=== PATIENT | male | born 1950 ===

== ENCOUNTER 2022-11-19 07:46 | Outpatient (AMB) | payer MEDICARE, OTHER, SELFPAY ==
[2022-11-19 08:19] VITALS: BP 98/64; PULSE 54; O2SAT 98; BMI 27.6
--- NOTE | 2022-11-19 08:19 | MHC.OFFVIS ---
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 Patient states I have apnea and I use a machine, I've had the machine for 5 years. Allergies No Known Allergies Allergy (Verified 11/19/22 08:25) HPI HPI Comments History of Present Illness Details 72 y/o male patient with his for new in-patient visit for post CVA. Pt reports he had CVA in May and also had sepsis for 9 days. He had aphagia, and right side weakness at that time. Pt's speaking has been changed to soft since the CVA. Denies difficulty swallowing or chocking. Also, he is steady walking but slow. He is on eliquis 5 mg BID. He was diagnosed with Afib and CHF. He is followed by quality assurance supervisor twice a year. Pt has hx ALFRED and he is on CPAP therapy. His home care company is [employer]. He was followed by [facility] Sleep medicine. He has difficulty falling asleep and staying sleep. He uses ambien 12.5 mg If he eat food contain MSG or caffeine, he can't sleep. He has both ankle injury from playing soccer, and can't do exercise. Sleep hygiene questionnaire: What is your usual sleep routine? Usual bedtime is at 12-2 am; Usual wake up time is at 10:10:30 am. Do you take naps? No. Is your sleep environment cool, dark, and quiet? Yes. Do you exercise? No. Do you take caffeine or other stimulants? No. Do you use electronics in bed? Yes, watches TV. What is your work schedule? Retired. Hypersomnolence questionnaire: Do you have daytime tiredness or fatigue? No. Do you easily fall asleep when inactive? No. Have you ever had episodes of sudden weakness? No. Have you ever had episodes of sudden weakness associated with strong emotions? No. PFSH Surgical History (Updated 11/19/22 @ 08:30 by YAYO Rose) H/O cervical spine surgery H/O heart surgery H/O brain surgery Family History (Updated 11/19/22 @ 08:31 by YAYO Rose) Father Diabetes Mother Pacemaker Social History (Updated 11/19/22 @ 08:31 by YAYO Rose) Alcohol intake: never Patient Tobacco Use Status: Never used Tobacco Use of substances other than those prescribed or required for medical reasons: No Review of Systems Const All systems reviewed & are unremarkable except as noted in HPI and below ENT Reports Normal hearing present Neuro Reports Normal hearing present Physical Exam Vital Signs: Last Vital Signs Pulse 54 11/19/22 08:19 BP 98/64 11/19/22 08:19 Pulse Ox 98 11/19/22 08:19 Oxygen Delivery Method Room Air 11/19/22 08:19 BMI result Body Mass Index 27.6 Const General: cooperative Nutritional Appearance: overweight Orientation/consciousness: patient oriented x3 Neck Neck: Yes full ROM and Yes supple Resp Effort & Inspection: normal respiratory effort and able to speak in complete sentences Neuro Other: slow speaking, soft voice. General: patient oriented x3 and moves all extremities Cranial nerves: Yes Bilaterally intact EOM present, Yes Normal facial strength present, Yes Midline tongue present, Yes Symmetric palate elevation present, Yes Normal hearing present and Yes Ability to bilaterally rotate head present Cognition (Neuro): normal cognition Gait exam (Neuro): Antalgic gait present Motor exam (neuro): 5/5 motor strength present throughout, Pronator motor function not present and no tremor noted Psych Appearance: grossly normal Mental Status: mental status grossly normal Speech and movement: Normal speech and movement present Affect: normal affect Attitude: cooperative Assessment & Plan Assessment & Plan (1) CVA (cerebral vascular accident): Code(s): I63.9 - Cerebral infarction, unspecified (2) ALFRED on CPAP: Code(s): G47.33 - Obstructive sleep apnea (adult) (pediatric) Plan Advised patient to continue to take Eliquis 5 mg BID, and rosuvastatin. Continue to use CPAP nightly and more than 4hrs and followed by Sleep Medicine. Stressed CPAP compliance. Encouraged patient to do gentle daily exercise. Coding Level of Care Code New Pt Level 3 (09310) Diagnoses CVA (cerebral vascular accident) I63.9 ALFRED on CPAP G47.33
== END 2022-11-19 09:05 | disposition home or self-care (01) ==
PROVIDERS: Visit Provider Nurse Practitioner Family
DX: I69.398 Other sequelae of cerebral infarction (principal); G47.33 Obstructive sleep apnea (adult) (pediatric)
CPT/HCPCS: 99203

== ENCOUNTER → 2022-11-19 07:46 | Outpatient (BNVA) | payer MEDICARE, OTHER, SELFPAY | PROVIDERS: Visit Provider Nurse Practitioner Family | DX: I63.9 Cerebral infarction, unspecified (principal); G47.33 Obstructive sleep apnea (adult) (pediatric); Z79.01 Long term (current) use of anticoagulants | CPT/HCPCS: 99202 ==